=== PATIENT | female | born 1995 | race Hispanic/Latino ===

== ENCOUNTER 2017-04-28 04:05 | Emergency (ER) | payer SELFPAY ==
[2017-04-28] MEDS ORDERED: NA CHLORIDE 0.9% 2,000 ML ONE (04:49)
[2017-04-28 05:23] LABS: Barbiturates NEGATIVE; Benzodiazepines NEGATIVE; Cocaine NEGATIVE; METHAMPHETAM NEGATIVE; Opiates NEGATIVE; Phencyclidine NEGATIVE; THC Cannibis POSITIVE
[2017-04-28 05:41] LABS: Urine Blood 1+ (NEG); Urine Glucose NEGATIVE (NEG); Urine Protein NEGATIVE (NEG); Urine pH 5.5 (5.0-7.0)
--- NOTE | 2017-04-28 05:50 | EDPHYS ---
Physician Documentation [facility] Name: Karen Rivera Age: 21 yrs Sex: Female : 1995 Arrival Date: 04/28/2017 Time: 04:09 Bed 8 Private MD: ED Physician Darian Reese HPI: 04/28 05:54 This 21 yrs old Female presents to ER via EMS with complaints of ETOH Abuse. gs 05:54 The patient presents with agitation, decreased mental status. Onset: The gs symptoms/episode began/occurred acutely, just prior to arrival. Possible causes: drug use, alcohol. Associated signs and symptoms: Pertinent negatives: numbness, shortness of breath. Current symptoms: In the emergency department the patient's symptoms are unchanged from the initial presentation. It is unknown whether or not the patient has had similar symptoms in the past. 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 - Social history:: Smoking status: Patient/guardian denies using tobacco. ROS: 05:54 All other systems are negative. gs Exam: 05:54 Head/Face: Normocephalic, atraumatic. Eyes: Pupils equal round and reactive to light, gs extra-ocular motions intact. Lids and lashes normal. Conjunctiva and sclera are non-icteric and not injected. Cornea within normal limits. Periorbital areas with no swelling, redness, or edema. ENT: Nares patent. No nasal discharge, no septal abnormalities noted. Tympanic membranes are normal and external auditory canals are clear. Oropharynx with no redness, swelling, or masses, exudates, or evidence of obstruction, uvula midline. Mucous membranes moist. Neck: Trachea midline, no thyromegaly or masses palpated, and no cervical lymphadenopathy. Supple, full range of motion without nuchal rigidity, or vertebral point tenderness. No Meningismus. Chest/axilla: Normal chest wall appearance and motion. Nontender with no deformity. No lesions are appreciated. Cardiovascular: Regular rate and rhythm with a normal S1 and S2. No gallops, murmurs, or rubs. Normal PMI, no JVD. No pulse deficits. Respiratory: Lungs have equal breath sounds bilaterally, clear to auscultation and percussion. No rales, rhonchi or wheezes noted. No increased work of breathing, no retractions or nasal flaring. Abdomen/GI: Soft, non-tender, with normal bowel sounds. No distension or tympany. No guarding or rebound. No evidence of tenderness throughout. Back: No spinal tenderness. No costovertebral tenderness. Full range of motion. 05:54 Constitutional: The patient appears alert, awake. 05:54 Musculoskeletal/extremity: Extremities: noted in the left dasilva: contusion, Joints: the left knee displays tenderness. 05:54 Neuro: Orientation: to person, Cranial nerves: CN II- XII are normal as tested, Motor: moves all fours, Sensation: no obvious gross deficits. Vital Signs: 04:19 BP 117 / 77; Pulse 139; Resp 26; Temp 98.2; Pulse Ox 100% on R/A; Weight 61.23 kg; tl2 Height 5 ft. 2 in. (157.48 cm); Pain 10/10; 04:30 BP 118 / 86; Pulse 136; Resp 24; Pulse Ox 100% on R/A; ak1 05:10 BP 98 / 72; Pulse 114; Resp 16; Pulse Ox 100% on R/A; ak1 04:19 Body Mass Index 24.69 (61.23 kg, 157.48 cm) tl2 MDM: 04:32 Patient medically screened. gs 05:54 Differential Diagnosis: alcohol intoxication, intracranial bleed, overdose. Data reviewed: vital signs, nurses notes. Response to treatment: the patient's symptoms have markedly improved after treatment, can walk on own will discharge no fracture no head injury just intoxicated. 04/28 04:29 Order name: ETOH Level [facility] 04/28 04:29 Order name: Urine Drug Screen [facility] 04/28 04:50 Order name: Urine Dipstick--Ancillary (enter results) [facility] 04/28 04:50 Order name: Urine --Ancillary (enter results) [facility] 04/28 05:15 Order name: Alcohol Serum/Plasma; Complete Time: 06:11 EDMS 04/28 05:23 Order name: Urine Drug Screen; Complete Time: 06:11 EDMS 04/28 05:41 Order name: Urine --Ancillary; Complete Time: 06:11 EDMS 04/28 04:29 Order name: Urine Test (obtain specimen); Complete Time: 04:45 tl2 04/28 04:29 Order name: EKG; Complete Time: 04:30 tl2 04/28 04:29 Order name: IV Saline Lock; Complete Time: 04:34 tl2 04/28 04:29 Order name: Urine Dipstick-Ancillary (obtain specimen); Complete Time: 04:45 tl2 04/28 04:36 Order name: Knee Left 3 View XRAY 04/28 04:36 Order name: Tib Fib Left XRAY 04/28 04:38 Order name: Straight Cath - Urine; Complete Time: 04:45 bb 04/28 04:51 Order name: CT Head Brain wo Cont 04/28 05:41 Order name: Urine Dipstick-Ancillary; Complete Time: 06:11 EDMS Administered Medications: 04:33 Drug: NS 0.9% 2000 ml Route: IV; Rate: 1 bolus; Site: right antecubital; ak1 Disposition: 04/28/17 05:49 Discharged to Home. Impression: Alcohol abuse with intoxication. - Condition is Stable. - Discharge Instructions: Alcohol Intoxication, [id number]. - Medication Reconciliation Form, Thank You Letter, Antibiotic Education, Prescription Opioid Use form. - Follow up: Private Physician; When: 2 - 3 days; Reason: Re-evaluation by your physician. Signatures: Dispatcher [employer] Yamilet Liu RN RN bb Krenek, Amber, RN RN ak1 Cintia Vargas RN RN tl2 Darian Reese MD MD Corrections: (The following items were deleted from the chart) 04:37 04:29 EKG - Nurse/Tech ordered. tl2 rg2 04:38 04:29 Labs collected and sent ordered. tl2 rg2
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
--- NOTE | 2017-04-28 08:18 | RAD REPORT ---
EXAM DESCRIPTION: CT - Head Brain Wo Cont - 04/28/2017 6:38 am CLINICAL HISTORY: Altered mental status, uncooperative and confused A preliminary written report was provided at the time of the study, and the report was reviewed prio r to final dictation. COMPARISON: None. TECHNIQUE: Axial 5 mm thick images of the head were obtained without IV contrast. Patient was unable or unwilling to lay supine for imaging. Patient was imaged on the left side. All CT scans are performed using dose optimization technique as appropriate and may include automated exposure control or mA/KV adjustment according to patient size. FINDINGS: No intracranial hemorrhage, mass, edema or shift of mid-line structures. No acute infarcti on changes seen. No abnormal extra-axial fluid collections. Ventricles are normal. Mastoid air cells are clear. There is patchy mucosal thickening in the ethmoid air cells. No air-flui d levels. Patient has nonspecific nasal passage opacification not fully assessed on this study. No acute bony findings. IMPRESSION: Negative non-contrast CT head examination for acute or significant finding.
--- NOTE | 2017-04-28 09:04 | RAD REPORT ---
EXAM DESCRIPTION: RAD - Knee Left 2 View - 04/28/2017 5:06 am CLINICAL HISTORY: Altered mental status, knee pain, unknown injury, patient uncooperative COMPARISON: None. FINDINGS: No fracture, dislocation or periosteal reaction.No joint effusion seen. No joint space analilia rowing. No soft tissue abnormality. Clinical concerns for internal derangement or occult bony injury could be further assessed with MR im aging. IMPRESSION: Negative left knee.
--- NOTE | 2017-04-28 09:06 | RAD REPORT ---
EXAM DESCRIPTION: RAD - Tib Fib Left - 04/28/2017 5:05 am CLINICAL HISTORY: Leg pain, patient uncooperative, altered mental status COMPARISON: None. FINDINGS: No fracture is identified. There is no dislocation or periosteal reaction noted. No acute or suspicious bony finding. No foreign body or other soft tissue abnormality. IMPRESSION: Negative left tibia & fibula examination. There is artifact from a hand at the ankle joint needed to obscure the patient in place. Ankle abnorm ality is not suspected but followup imaging would be needed if there are ankle symptoms and the patie nt becomes more cooperative.
== END 2017-04-28 06:05 | disposition home or self-care (01) ==
LOC: ER 04:05
DX: F10.129 Alcohol abuse with intoxication, unspecified (principal)
CPT/HCPCS: 36415; 51702; 70450; 80307; 80320; 81003; 81025; 99285; J7030

== ENCOUNTER 2018-02-03 21:45 | Emergency (ER) | payer OTHER, SELFPAY ==
--- OUTSIDE RECORDS SUMMARY | 2018-02-03 21:47 | XMS REPORT ---
:1995 [facility] Address [address] [place] [address] [address] [place] [address] Care Team Providers Name Role Phone Unavailable Unavailable Unavailable Problems This patient has no known problems. Allergies, Adverse Reactions, Alerts This patient has no known allergies or adverse reactions. Medications This patient has no known medications.
[2018-02-03] MEDS ORDERED: NA CHLORIDE 0.9% 1,000 ML ONE (22:40)
[2018-02-03 22:47] LABS: BUN Blood Urea Nitrogen 8 mg/dL (7-18); Bicarbonate 24 mmol/L (21-32); Glucose Level 80 mg/dL (74-106); Potassium 4.1 mmol/L (3.5-5.1); Sodium Level 146 mmol/L (136-145)
[2018-02-03 22:49] LABS: Absolute Monocytes 0.8 K/uL (0.1-1.3); Basophils % 0.2 % (0-1.3); Eosinophils % 1.3 % (0-4.4); Hematocrit 23.1 % (36.0-45.0); Lymphocytes % 16.6 % (15.3-44.8); MPV 9.2 fL (7.6-11.3); Monocytes % 6.4 % (3.3-12.3); RBC Red Blood Cell Count 2.98 M/uL (3.86-4.86)
[2018-02-03 23:06] LABS: Urine Blood NEGATIVE (NEG); Urine Glucose NEGATIVE (NEG); Urine Protein NEGATIVE (NEG)
--- NOTE | 2018-02-04 00:33 | ER ---
Nurse's Notes [facility] Name: Karen Rivera Age: 22 yrs Sex: Female : 1995 Arrival Date: 02/03/2018 Time: 21:49 Bed 6 Private MD: Diagnosis: Post bleeding. Retained products. Anemia Presentation: 02/03 21:59 Presenting complaint: Patient states: she gave last night at 1203 vaginally with bb no complications but about an hour ago she started passing large clots and was told by her physician she should be seen if that happens. Transition of care: patient was not received from another setting of care. Onset of symptoms was February 03, 2018. Risk Assessment: Do you want to hurt yourself or someone else? Patient reports no desire to harm self or others. Initial Sepsis Screen: Does the patient meet any 2 criteria? No. Patient's initial sepsis screen is negative. Does the patient have a suspected source of infection? No. Patient's initial sepsis screen is negative. Note pt states bilateral lower legs are swelling. Care prior to arrival: None. 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 - Social history:: Smoking status: Patient uses tobacco products, smokes one-half pack cigarettes per day, Patient/guardian denies using alcohol, street drugs. - Ebola Screening: : No symptoms or risks identified at this time. Screenin:00 Nutritional screening: No deficits noted. ca1 22:10 Abuse screen: Denies threats or abuse. Denies injuries from another. ca1 22:10 Tuberculosis screening: No symptoms or risk factors identified. Fall Risk None ca1 identified. Assessment: 22:07 General: Appears in no apparent distress. comfortable, Behavior is calm, cooperative, ca1 appropriate for age. Pain: Complains of pain in abdomen Pain currently is 8 out of 10 on a pain scale. Neuro: Level of Consciousness is awake, alert, obeys commands, Oriented to person, place, time, situation. Cardiovascular: Heart tones S1 S2 present Capillary refill < 3 seconds Patient's skin is warm and dry. Respiratory: Airway is patent Trachea midline Respiratory effort is even, unlabored, Respiratory pattern is regular, symmetrical, Breath sounds are clear bilaterally. GI: Abdomen is round non-distended, Bowel sounds present X 4 quads. Abd is soft Abdomen is tender to palpation Reports cramping, since since less than an hour ago. 22:07 : Reports vaginal bleeding that is with clots, since an hour ago. EENT: No signs ca1 and/or symptoms were reported regarding the EENT system. Derm: Skin is intact, is healthy with good turgor, Skin is pink, warm \T\ dry. Musculoskeletal: Circulation, motion, and sensation intact. Range of motion: intact in all extremities. 23:00 Reassessment: Patient appears in no apparent distress at this time. Patient and/or ca1 family updated on plan of care and expected duration. Pain level reassessed. Patient is alert, oriented x 3, equal unlabored respirations, skin warm/dry/pink. 02/04 00:18 Reassessment: Patient appears in no apparent distress at this time. Patient and/or ca1 family updated on plan of care and expected duration. Pain level reassessed. Patient is alert, oriented x 3, equal unlabored respirations, skin warm/dry/pink. Instructed on NPO. 00:37 Reassessment: Dr. Harley inside the room discussed results of ultrasound and need for ca1 transfer to patient and significant other. 00:50 Reassessment: Patient appears in no apparent distress at this time. Patient and/or ca1 family updated on plan of care and expected duration. Pain level reassessed. Patient is alert, oriented x 3, equal unlabored respirations, skin warm/dry/pink. Called report to Nayana Ramirez RN at [facility] L\T\D triage. Vital Signs: 02/03 22:02 BP 126 / 88; Pulse 79; Resp 16 S; Temp 99.2(O); Pulse Ox 99% on R/A; Weight 58.97 kg bb (R); Height 5 ft. 2 in. (157.48 cm) (R); 22:30 BP 121 / 88; Pulse 75; Resp 18; Pulse Ox 99% on R/A; ca1 23:00 BP 113 / 94; Pulse 76; Resp 18; Pulse Ox 99% on R/A; ca1 02/04 00:18 BP 131 / 93; Pulse 73; Resp 18; Pulse Ox 100% on R/A; ca1 00:37 BP 131 / 93; Pulse 78; Resp 18; Temp 98.8; Pulse Ox 100% on R/A; ca1 01:11 BP 115 / 86; Pulse 86; Resp 18; Pulse Ox 100% on R/A; ca1 02/03 22:02 Body Mass Index 23.78 (58.97 kg, 157.48 cm) bb ED Course: 02/03 21:49 Patient arrived in ED. es 22:00 Daisy Ambriz, RN is Primary Nurse. ca1 22:01 Robbie Harley MD is Attending Physician. pkl 22:02 Triage completed. bb 22:02 Arm band placed on Patient placed in an exam room, on a stretcher, on pulse oximetry. bb Family accompanied patient. 22:10 Patient has correct armband on for positive identification. Placed in gown. Bed in low ca1 position. Call light in reach. Side rails up X2. 22:15 Inserted saline lock: 20 gauge in right antecubital area, using aseptic technique. ca1 Blood collected. 22:52 Notified ED physician of a critical lab result(s). Hgb of 7.5 Dr Harley notified. bb 23:03 Straight cath inserted, using sterile technique, 16 Fr. Specimen obtained. Returned ca1 clear yellow urine. Patient tolerated well. 23:17 Ultrasound completed. Patient tolerated well. Note: exam sent to [facility]. sg3 23:17 US Pelvis Complete In Process Unspecified. EDOR 02/04 01:20 No provider procedures requiring assistance completed. Patient transferred, IV remains ca1 in place. Administered Medications: 02/03 22:31 Drug: NS 0.9% 1000 ml Route: IV; Rate: 100 ml/hr; Site: right antecubital; ca1 02/04 01:29 Follow up: IV Status: Infusion continued upon transfer ca1 Outcome: 00:32 ER care complete, transfer ordered by . ericka 01:20 Transferred by ground EMS Transfer form completed. ca1 01:20 Condition: stable 01:20 Instructed on the need for transfer, Demonstrated understanding of instructions. 01:28 Patient left the ED. ca1 Signatures: Dispatcher [employer] EDOR Harley, MD MD ericka Avalos Edna es Ballard, Brenda, RN RN Shruti Grace sg3 Daisy Ambriz RN RN ca1 Corrections: (The following items were deleted from the chart) 02/03 23:32 22:07 GI: Abdomen is round non-distended, Bowel sounds present X 4 quads. ca1 ca1 23:40 23:05 Reassessment: Patient appears in no apparent distress at this time. Patient ca1 and/or family updated on plan of care and expected duration. Pain level reassessed. Patient is alert, oriented x 3, equal unlabored respirations, skin warm/dry/pink. ca1 23:52 22:07 : No signs and/or symptoms were reported regarding the genitourinary system. ca1ca1 02/04 01:16 00:50 Reassessment: Patient appears in no apparent distress at this time. Patient ca1 and/or family updated on plan of care and expected duration. Pain level reassessed. Patient is alert, oriented x 3, equal unlabored respirations, skin warm/dry/pink. Called report to Nayana Ramirez RN. ca1
--- NOTE | 2018-02-04 00:33 | EDPHYS ---
Physician Documentation [facility] Name: Karen Rivera Age: 22 yrs Sex: Female : 1995 Arrival Date: 02/03/2018 Time: 21:49 Bed 6 Private MD: ED Physician Robbie Harley HPI: 02/03 22:53 This 22 yrs old Female presents to ER via Ambulatory with complaints of pkl Passing clots of blood, feet and hands swelling. 22:53 The patient presents with vaginal bleeding that is moderate, with clots. Onset: The pkl symptoms/episode began/occurred just prior to arrival, 1 hour(s) ago. Associated signs and symptoms: Pertinent positives: swelling hands and legs. S/P vaginal delivery yesterday. 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 - Social history:: Smoking status: Patient uses tobacco products, smokes one-half pack cigarettes per day, Patient/guardian denies using alcohol, street drugs. - Ebola Screening: : No symptoms or risks identified at this time. ROS: 22:53 Positive for vaginal bleeding. pkl 22:53 Eyes: Negative for injury, pain, redness, and discharge, ENT: Negative for injury, pain, and discharge, Neck: Negative for injury, pain, and swelling, Cardiovascular: Negative for chest pain, palpitations, and edema, Respiratory: Negative for shortness of breath, cough, wheezing, and pleuritic chest pain, Abdomen/GI: Negative for abdominal pain, nausea, vomiting, diarrhea, and constipation, Back: Negative for injury and pain. 22:53 MS/extremity: Positive for swelling, of the hands and legs. 22:53 Skin: Negative for rash. 22:53 Neuro: Negative for altered mental status. Exam: 22:53 Head/Face: Normocephalic, atraumatic. Eyes: Pupils equal round and reactive to light, pkl extra-ocular motions intact. Lids and lashes normal. Conjunctiva and sclera are non-icteric and not injected. Cornea within normal limits. Periorbital areas with no swelling, redness, or edema. ENT: Nares patent. No nasal discharge, no septal abnormalities noted. Tympanic membranes are normal and external auditory canals are clear. Oropharynx with no redness, swelling, or masses, exudates, or evidence of obstruction, uvula midline. Mucous membranes moist. Neck: Trachea midline, no thyromegaly or masses palpated, and no cervical lymphadenopathy. Supple, full range of motion without nuchal rigidity, or vertebral point tenderness. No Meningismus. Chest/axilla: Normal chest wall appearance and motion. Nontender with no deformity. No lesions are appreciated. Cardiovascular: Regular rate and rhythm with a normal S1 and S2. No gallops, murmurs, or rubs. Normal PMI, no JVD. No pulse deficits. Respiratory: Lungs have equal breath sounds bilaterally, clear to auscultation and percussion. No rales, rhonchi or wheezes noted. No increased work of breathing, no retractions or nasal flaring. Abdomen/GI: Soft, non-tender, with normal bowel sounds. No distension or tympany. No guarding or rebound. No evidence of tenderness throughout. Back: No spinal tenderness. No costovertebral tenderness. Full range of motion. 22:53 : Pelvic Exam: Speculum exam: moderate bleeding, a female copy clerk was present for the exam. 22:53 Musculoskeletal/extremity: Extremities: grossly normal except: noted in the both legs moderate swelling: Vital Signs: 22:02 BP 126 / 88; Pulse 79; Resp 16 S; Temp 99.2(O); Pulse Ox 99% on R/A; Weight 58.97 kg bb (R); Height 5 ft. 2 in. (157.48 cm) (R); 22:30 BP 121 / 88; Pulse 75; Resp 18; Pulse Ox 99% on R/A; ca1 23:00 BP 113 / 94; Pulse 76; Resp 18; Pulse Ox 99% on R/A; ca1 02/04 00:18 BP 131 / 93; Pulse 73; Resp 18; Pulse Ox 100% on R/A; ca1 00:37 BP 131 / 93; Pulse 78; Resp 18; Temp 98.8; Pulse Ox 100% on R/A; ca1 01:11 BP 115 / 86; Pulse 86; Resp 18; Pulse Ox 100% on R/A; ca1 02/03 22:02 Body Mass Index 23.78 (58.97 kg, 157.48 cm) bb MDM: 02/03 22:01 Patient medically screened. pkl 02/04 00:28 Data reviewed: vital signs, nurses notes, lab test result(s), radiologic studies, pkl ultrasound. 02/03 22:14 Order name: CBC with Diff; Complete Time: 22:52 pkl 02/03 22:14 Order name: Chem 7; Complete Time: 22:49 pkl 02/03 22:51 Order name: US Pelvis Complete pkl 02/03 22:53 Order name: Type And Screen; Complete Time: 00:32 bb 02/03 23:04 Order name: Urine Dipstick--Ancillary (enter results); Complete Time: 23:56 ms 02/03 22:42 Order name: Straight Cath: verbal Order.; Complete Time: 23:03 ca1 Administered Medications: 02/03 22:31 Drug: NS 0.9% 1000 ml Route: IV; Rate: 100 ml/hr; Site: right antecubital; ca1 02/04 01:29 Follow up: IV Status: Infusion continued upon transfer ca1 Disposition: 02/04/18 00:32 Transfer ordered to [facility]. Diagnosis is Post bleeding. Retained products. Anemia. - Reason for transfer: Higher level of care. - Accepting physician is Dr. Colvin. - Condition is Stable. - Problem is new. - Symptoms are unchanged. Signatures: Dispatcher [employer] Robbie Villanueva MD MD pkl Yamilet Morrell RN RN bb Daisy Ambriz RN RN ca1 Corrections: (The following items were deleted from the chart) 02/03 22:16 22:15 This 22 yrs old Female presents to ER via Ambulatory with complaints of pkl Passing clots of blood, feet and hands swelling. pkl 02/04 01:28 00:32 02/04/2018 00:32 Transfer ordered to [facility]. Diagnosis is Post ca1 bleeding. Retained products. Anemia. Reason for transfer: Higher level of care. Accepting physician is Dr. Colvin. Condition is Stable. Problem is new. Symptoms are unchanged. pkl
--- NOTE | 2018-02-04 11:40 | RAD REPORT ---
EXAM DESCRIPTION: US - Pelvis Complete - 02/03/2018 11:19 pm CLINICAL HISTORY: passing clots Pelvic pain. COMPARISON: No comparisons FINDINGS: The uterus is enlarged compatible with status. The uterus measures 18 x 15 x 7 cm. Endometrium is heterogenous and thickened to 16 mm. An area of focal soft tissue prominence in the lo wer uterine segment measuring 3 cm is noted. This could be an area of retained products. Neither ovary was seen due to bowel gas. No significant pelvic ascites. IMPRESSION: uterus is noted as detailed.3 cm area of heterogenous tissue in the lower tejon rine endometrial canal could be retained products.
== END 2018-02-04 01:28 | disposition short-term general hospital (02) ==
LOC: ER 21:45
DX: O72.1 Other immediate postpartum hemorrhage (principal); O72.2 Delayed and secondary postpartum hemorrhage; O90.81 Anemia of the puerperium
CPT/HCPCS: 36415; 51702; 76856; 80048; 81003; 85025; 86850; 86900; 86901; 96360; 96361; 99285; J7030

== ENCOUNTER 2022-02-14 19:04 | Emergency (ER) | payer OTHER ==
--- OUTSIDE RECORDS SUMMARY | 2022-02-14 19:10 | XMS REPORT | Continuity of Care Document ---
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 [facility] 2020-09-30 2020-09-30 Outpatient Jacinta [facility] [id number] Univers 18:00:00 18:00:00 JANICE mesa o [facility] 2020-09-30 2020-09-30 Outpatient Jacinta [facility] [id number] Univers 16:00:00 16:00:00 JANICE mesa o [facility] 2020-09-18 2020-09-22 [facility] Mago Jorge [facility] 1.2.840.11 [id number] Univers 17:30:00 10:25:00 Encounter Samuel Anderson Mervin [place] 350.1.13.10 ity of [place] 4.2.7.2.686 [facility] [phone] [place] [id number] Nitro 2020-09-22 2020-09-22 [facility] 1.2.872.544 [id number] Univers 00:00:00 00:00:00 Janice Workman ENGINEERING CONSULTANT 350.1.13.10 ity of [facility] 4.2.7.2.686 Ran as MATERNAL [phone] [facility] ical & CHILD [address] [place] [address] 2020-09-08 2020-09-09 Hospital Samuel Anderson [facility] 1.2.840.114 [id number] Univers 06:10:00 17:37:00 Encounter Mervin [place] 350.1.13.10 ity of [place] 4.2.7.2.686 [facility] [phone] [place] [id number] Nitro 2020-09-08 2020-09-08 Outpatient Jacinta [facility] [id number] Univers 17:30:00 17:30:00 ODALYSKAILASHNDA ity o [facility] 2020-09-08 2020-09-08 Anesthesia Hemalatha Flores [facility] 1.2.840. 114 [id number] Univers 08:29:00 14:29:00 Event Kishore Manley 350.1.13.10 ity of [place] 4.2.7.2.686 [phone] [address] 2020-09-08 2020-09-[address] [facility] 1.2.840.114 [id number] Univers 07:30:27 07:30:27 Event Celio Paris 350.1.13.10 i ty of [place] 4.2.7.2.686 [facility] [phone] [address] 2020-09-03 2020-09-[address] [facility] 1.2.830.049 [id number] Univers 00:00:00 00:00:00 Tamaranda R ENGINEERING CONSULTANT 350.1.13.10 ity of REGIONAL 4.2.7.2.686 Ran as MATERNAL [phone] [facility] ical & CHILD [address] [place] [address] 2020-09-01 2020-09-[address] [facility] 1.2.660.054 [id number] Univers 00:00:00 00:00:00 Roskailashnda R ENGINEERING CONSULTANT 350.1.13.10 ity of REGIONAL 4.2.7.2.686 Ran as MATERNAL [phone] [facility] [address] [place] [address] 2020-08-31 2020-08-31 Outpatient R CHARANJIT [facility] [id number] Univers 17:30:00 17:30:00 ROSKAILASHNDA ity o f [facility] 2020-08-26 2020-08-26 Emergency Madan, Thompson [facility] 1.2.840.114 [id number] Univers 02:58:00 04:56:00 [place] 350.1.13.10 i ty of [place] 4.2.7.2.686 [facility] [phone] [address] 2020-08-19 2020-08-19 Outpatient R CHARANJIT [facility] [id number] Univers 18:00:00 18:00:00 TAMARANDA bonita o [facility] 2020-08-12 2020-08-12 Outpatient R CHARANJIT [facility] [id number] Univers 18:00:00 18:00:00 TAMARANDA marky o f [facility] 2020-07-30 2020-07-[address] [facility] 1.2.840.114 [id number] Univers 07:56:20 08:58:52 Roshunda R ENGINEERING CONSULTANT 350.1.13.10 ity of Visit REGIONAL 4.2.7.2.686 Ran as MATERNAL [phone] Med ical & CHILD [address] [place] [address] 2020-07-30 2020-07-30 Outpatient R CHARANJIT [facility] [id number] Univers 08:45:00 08:45:00 TIENA bonita o [facility] 2020-07-21 2020-07-21 Nurse ANDRE Cook 1.2.840.114 [id number] Univers 00:00:00 00:00:00 Triage Deisy [place] 350.1.13.10 it y of HOSPITAL 4.2.7.2.686 Ran as [id number] [address] 2020-07-20 2020-07-[address] [facility] 1.2.956.158 [id number] Univers 00:00:00 00:00:00 Roskailashnda R ENGINEERING CONSULTANT 350.1.13.10 ity of REGIONAL 4.2.7.2.686 Ran as MATERNAL [phone] [facility] ical & CHILD [address] [place] [address] 2020-07-16 2020-07-16 Outpatient Jacinta ELLINGTON [facility] [id number] Univers 15:30:00 15:30:00 RUSSELL mesa [facility] 2020-07-16 2020-07-[address] [facility] 1.2.840.114 [id number] Univers 08:12:33 10:08:47 Roshunda R ENGINEERING CONSULTANT 350.1.13.10 ity of Visit REGIONAL 4.2.7.2.686 Ran as MATERNAL [phone] Med ical & CHILD [facility] 2020-07-16 2020-07-16 Outpatient Jacinta DONOHUE [facility] [id number] Univers 08:00:00 08:00:00 ROSKAILASHNDA marky o f [facility] 2020-07-10 2020-07-10 Emergency Thompson Hager [facility] 1.2.840.114 [id number] Univers 21:13:00 22:48:00 [place] 350.1.13.10 i ty of [place] 4.2.7.2.686 [facility] [phone] [facility] [address] 2020-07-10 2020-07-10 Orders Doctor ANDRE 1.2.840.114 [id number] Univers 00:00:00 00:00:00 Only Unassigned, SOCORRO 350.1.13.10 ity of [facility] 4.2.7.2.686 Ran as [phone] [facility] [address] 2020-07-08 2020-07-08 Outpatient Jacinta DONOHUE [facility] [id number] Univers 13:30:00 13:30:00 JANICE mesa o f [facility] 2020-06-17 2020-06-17 Outpatient Jacinta DONOHUE [facility] [id number] Univers 09:45:00 09:45:00 TIENA bonita o f [facility] 2020-06-03 2020-06-[address] [facility] 1.2.840.114 [id number] Univers 15:43:15 16:03:31 Janice R ENGINEERING CONSULTANT 350.1.13.10 ity of Visit [facility] 4.2.7.2.686 Ran as MATERNAL [phone] [facility] ical & CHILD [address] [place] [address] 2020-06-03 2020-06-03 Outpatient Jacinta DONOHUE [facility] [id number] Univers 15:15:00 15:15:00 TIENA bonita o f [facility] 2020-05-29 2020-05-29 Outpatient Jacinta [facility] [id number] Univers 09:15:00 09:15:00 JANICE mesa o f [facility] 2020-05-26 2020-05-26 Telephone Charanjit [facility] 1.2.695.028 [id number] Univers 00:00:00 00:00:00 Roshunda R ENGINEERING CONSULTANT 350.1.13.10 ity of REGIONAL 4.2.7.2.686 Ran as MATERNAL [id number] [facility] [address] [place] [address] 2020-05-25 2020-05-25 Outpatient R CHARANJIT [facility] [id number] Univers 08:15:00 08:15:00 ROSHUNDA ity o f [facility] 2020-04-30 2020-04-30 Infrastructure Analyst Ultrasound[facility] 1.2 .840.114 [id number] Univers 08:49:31 09:56:30 Visit Womack Kasey Marks ENGINEERING CONSULTANT 350.1. 13.10 ity of REGIONAL 4.2.7.2.686 Ran as MATERNAL [phone] [facility] & CHILD [address] [place] [address] 2020-04-30 2020-04-30 Outpatient P [facility] [id number] Univers 08:45:00 08:45:00 ity of [facility] 2020-04-30 2020-04-[address] [facility] 1.2.840.114 [id number] Univers 00:00:00 00:00:00 Roskailashnda R ENGINEERING CONSULTANT 350.1.13.10 ity of REGIONAL 4.2.7.2.686 Ran as MATERNAL [id number] [facility] & CHILD [address] [place] [address] 2020-04-27 2020-04-[address] [facility] 1.2.840.114 [id number] Univers 08:42:50 09:16:33 Roshunda R ENGINEERING CONSULTANT 350.1.13.10 ity of Visit REGIONAL 4.2.7.2.686 Ran as MATERNAL [id number] [facility] & CHILD [address] [place] [address] 2020-04-27 2020-04-27 Outpatient R CHARANJIT [facility] [id number] Univers 08:45:00 08:45:00 ROSHUNDA ity o f [facility] 2020-04-16 2020-04-16 Nurse ANDRE Thurston 1.2.840.114 [id number] Univers 00:00:00 00:00:00 Triage Anemik QUINTANILLA 350.1.13.10 [facility] 4.2.7.2.686 Ran as [phone] [facility] [address] 2020-04-16 2020-04-[address] [facility] 1.2.199.220 [id number] Univers 00:00:00 00:00:00 Roskailashnda R ENGINEERING CONSULTANT 350.1.13.10 ity of [facility] 4.2.7.2.686 Ran as MATERNAL [id number] Med ical & CHILD [address] [place] [address] 2020-03-30 2020-03-[address] [facility] 1.2.840.114 [id number] Univers 08:54:15 09:51:33 Tamaranda R ENGINEERING CONSULTANT 350.1.13.10 ity of Visit [facility] 4.2.7.2.686 Ran as MATERNAL [id number] Med ical & CHILD [address] [place] [address] 2020-03-30 2020-03-30 Outpatient [facility] [id number] Univers 09:45:00 09:45:00 JANICE mesa o monse [facility] 2020-03-30 2020-03-30 Orders Doctor ANDRE 1.2.840.114 [id number] Univers 00:00:00 00:00:00 Only Unassigned, SOCORRO 350.1.13.10 ity of [facility] 4.2.7.2.686 Ran as [phone] [facility] 009 Nitro 2020-03-25 2020-03-25 Outpatient R [facility] [id number] Univers 09:30:00 09:30:00 ity of [facility] 2020-03-23 2020-03-23 Outpatient R [facility] [id number] Univers 10:00:00 10:00:00 DEION ity o f [facility] 2020-01-28 2020-01-28 Outpatient R [facility] [id number] Univers 14:00:00 14:00:00 [facility] 2019-07-08 2019-07-08 Emergency X MATT [facility] ERT [id number] Univers 19:55:47 22:37:00 CLINT [facility] Results Test Description Test Time Test Comments Results Result Comments Source RHO (D) IMMUNE GLOBULIN 2021-11-06 17:23:57 Test Item Value Reference Range Interpretation Comme nts RHIG CANDIDATE? (test code = No- see comment Patient is not a candidate for RhIg- 5055) Patient is Rh P ositive.Performed at [facility] Laboratory Services - [facility] Blood Ebrr[address]Toll Free: [phone] A No. [id number] [facility] Screen - ONCE [id number] 10:01:27 Test Item Value Reference Range Interpretation Comments ABO & RH (test code O Positive Performe d at [facility] = 20) Laboratory Serv [facility] Blood Bank1 [address] [place], [place] [address]Toll Free: [phone] A No. [id number] IAT (test code = Negative Performed a t [facility] 1185) Laboratory Serv [facility] Blood Bank1 [address] [place], [place] [id number] Free: [phone] A No. [id number] [facility]
[2022-02-14 19:57] LABS: Urine Blood 1+ (Negative); Urine Glucose Negative (Negative); Urine Protein 1+ (Negative); Urine Specific Gravity >=1.030 (1.005-1.030); Urine pH 5.5 (5.0-7.0)
[2022-02-14 20:41] LABS: Urine Specific Gravity/Preg >1.030 (1.005-1.030)
[2022-02-14 21:20] LABS: SARS-COV-2 RT PCR POSITIVE (NEGATIVE)
--- NOTE | 2022-02-14 22:02 | ER ---
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 pt had 102 fever at 5pm and took 1000mg tylenol. Coronavirus screen: Vaccine status: Patient reports being unvaccinated. Client denies travel out of the [place] in the last 14 days. Ebola Screen: Patient negative for fever greater than or equal to 101.5 degrees Fahrenheit, and additional compatible Ebola Virus Disease symptoms Patient denies exposure to infectious person. Patient denies travel to an Ebola-affected area in the 21 days before illness onset. Initial Sepsis Screen: Does the patient meet any 2 criteria? No. Patient's initial sepsis screen is negative. Does the patient have a suspected source of infection? No. Patient's initial sepsis screen is negative. Risk Assessment: Do you want to hurt yourself or someone else? Patient reports no desire to harm self or others. Onset of symptoms was February 14, 2022. 19:30 Method Of Arrival: Ambulatory [facility] 19:30 Acuity: TY 4 [facility] Triage Assessment: 19:33 General: Appears in no apparent distress. slender, Behavior is calm, cooperative, [facility] appropriate for age. VERIFICATION LEAD: 19:33 LMP N/A - Recent [facility] Historical: - Allergies: 19:33 NKA; 5 - PMHx: 19:33 Bipolar disorder; Depression; [facility] - Immunization history:: Adult Immunizations up to date. - Social history:: Smoking status: Reported history of juuling and/or vaping. Screenin:16 [facility] ED Fall Risk Assessment (Adult) History of falling in the last 3 months, 3 including since admission No falls in past 3 months (0 pts). Abuse screen: Denies threats or abuse. Denies injuries from another. Nutritional screening: No deficits noted. Tuberculosis screening: No symptoms or risk factors identified. Assessment: 20:30 General: Appears in no apparent distress. comfortable, Behavior is calm, cooperative, eh3 appropriate for age. Pain: Denies pain. Neuro: Level of Consciousness is awake, alert, obeys commands, Oriented to person, place, time, situation. Cardiovascular: Capillary refill < 3 seconds Patient's skin is warm and dry. Respiratory: Airway is patent Respiratory effort is even, unlabored, Respiratory pattern is regular. GI: No signs and/or symptoms were reported involving the gastrointestinal system. : No signs and/or symptoms were reported regarding the genitourinary system. EENT: No signs and/or symptoms were reported regarding the EENT system. Derm: No signs and/or symptoms reported regarding the dermatologic system. Musculoskeletal: No signs and/or symptoms reported regarding the musculoskeletal system. Vital Signs: 19:30 BP 126 / 72; Pulse 104; Resp 18; Temp 98.4; Pulse Ox 100% ; Weight 61.23 kg; Height 5 [facility] ft. 2 in. (157.48 cm); Pain 0/10; 19:30 Body Mass Index 24.69 (61.23 kg, 157.48 cm) [facility] ED Course: 19:13 Patient arrived in ED. mr 19:21 Elias Cesar PA is PHCP. cp 19:21 Kentrell Graham MD is Attending Physician. cp 19:33 Triage completed. 5 19:33 Arm band placed on right wrist. [facility] 19:52 Strep Sent. 5 19:52 COVID-19/FLU A+B Sent. [facility] 21:39 Throat Culture Sent. 5 22:16 Patient has correct armband on for positive identification. eh3 22:16 No provider procedures requiring assistance completed. Patient did not have IV access eh3 during this emergency room visit. Administered Medications: No medications were administered Medication: 22:16 VIS not applicable for this client. eh3 Outcome: 22:01 Discharge ordered by . cp 22:16 Discharged to home ambulatory. eh3 22:16 Condition: stable 22:16 Discharge instructions given to patient, Instructed on discharge instructions, follow up and referral plans. medication usage, Demonstrated understanding of instructions, follow-up care, medications, Prescriptions given X 1. 22:19 Patient left the ED. eh3 Signatures: Pily Arellano mr Elias Cesar PA PA cp Wood, Tiffany tw5 Emili Mg, RN RN jh5 Bijal Bautista RN RN eh3
--- NOTE | 2022-02-14 22:02 | EDPHYS ---
Physician Documentation [facility] Name: Karen Rivera Age: 26 yrs Sex: Female : 1995 Arrival Date: 02/14/2022 Time: 19:13 Bed 1 Private MD: ED Physician Kentrell Graham HPI: 02/14 19:55 This 26 yrs old Female presents to ER via Ambulatory with complaints of Flu cp Symptoms. 19:55 The patient or guardian reports cough, flu symptoms, arthralgias, fever, sore throat, cp headache. 19:55 Onset: The symptoms/episode began/occurred this morning. Severity of symptoms: in the cp emergency department the symptoms are unchanged despite home interventions. 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 [employer]: 19:33 LMP N/A - Recent 5 Historical: - Allergies: 19:33 NKA; jh5 - PMHx: 19:33 Bipolar disorder; Depression; 5 - Immunization history:: Adult Immunizations up to date. - Social history:: Smoking status: Reported history of juuling and/or vaping. ROS: 20:00 Constitutional: Positive for body aches, Negative for fever, poor PO intake. cp 20:00 Eyes: Negative for injury, pain, redness, and discharge. cp 20:00 ENT: Positive for sore throat. 20:00 Respiratory: Positive for cough. 20:00 Neuro: Positive for headache. 20:00 All other systems are negative. Exam: 20:05 Constitutional: The patient appears in no acute distress, alert, awake, non-toxic, well cp developed, well nourished. 20:05 Head/Face: Normocephalic, atraumatic. cp 20:05 Eyes: Periorbital structures: appear normal, Conjunctiva: normal, no exudate, no injection, Lids and lashes: appear normal, bilaterally. 20:05 ENT: External ear(s): are unremarkable, Ear canal(s): are normal, clear, TM's: dullness, bilaterally, Nose: is normal, Mouth: Lips: moist, Oral mucosa: moist, Posterior pharynx: Airway: no evidence of obstruction, patent, Tonsils: with erythema, no enlargement, no exudate. 20:05 Neck: ROM/movement: is normal, is supple, without pain, no range of motions limitations, no meningismus. 20:05 Chest/axilla: Inspection: normal. 20:05 Cardiovascular: Rate: tachycardic, Rhythm: regular. 20:05 Respiratory: the patient does not display signs of respiratory distress, Respirations: normal, no use of accessory muscles, no retractions, labored breathing, is not present, Breath sounds: are clear throughout, no decreased breath sounds, no stridor, no wheezing. 20:05 Abdomen/GI: Inspection: abdomen appears normal, Palpation: abdomen is soft and non-tender, in all quadrants. Vital Signs: 19:30 BP 126 / 72; Pulse 104; Resp 18; Temp 98.4; Pulse Ox 100% ; Weight 61.23 kg; Height 5 5 ft. 2 in. (157.48 cm); Pain 0/10; 19:30 Body Mass Index 24.69 (61.23 kg, 157.48 cm) [facility] MDM: 19:38 Patient medically screened. 22:00 Data reviewed: vital signs, nurses notes, lab test result(s). cp 22:00 Antibiotic administration: Not indicated, the patient has a suspected viral illness. cp 22:00 ED course: VSS. Will discharge to home for symptomatic treatment. 02/14 19:37 Order name: COVID-19/FLU A+B; Complete Time: 21:[address] [facility] 02/14 21:47 Interpretation: Reviewed. 02/14 19:42 Order name: Strep; Complete Time: 21:[address] [facility] 02/14 19:37 Order name: Urine Test (obtain specimen); Complete Time: 19:[address] [facility] 02/14 19:57 Order name: Urine --Ancillary (enter results); Complete Time: 21:47 [facility] 02/14 21:48 Interpretation: Reviewed. 02/14 19:57 Order name: Urine Dipstick-Ancillary; Complete Time: 21:47 EDMS 02/14 21:48 Interpretation: Normal except: UKET 2+; UBLD 1+; UPROT 1+. 02/14 20:43 Order name: Throat Culture EDMS Administered Medications: No medications were administered Disposition Summary: 02/14/22 22:01 Discharge Ordered Location: Home cp Problem: new cp Symptoms: have improved cp Condition: Stable cp Diagnosis - SARS-associated coronavirus as the cause of diseases classified elsewhere cp Followup: cp - With: Private Physician - When: 2 - 3 days - Reason: Worsening of condition Discharge Instructions: - Discharge Summary Sheet cp - COVID-19 cp - Things to Know about the COVID-19 Pandemic - [facility] cp - 10 Things You Can Do to Manage Your COVID-19 Symptoms at Home - [facility] cp - COVID-19: Quarantine vs. Isolation - [facility] cp - Prevent the Spread of COVID-19 if You Are Sick - [facility] cp Forms: - Medication Reconciliation Form cp - Thank You Letter cp - Antibiotic Education cp - Prescription Opioid Use cp - Work release form eh3 Prescriptions: - Ibuprofen 600 mg Oral Tablet - take 1 tablet by ORAL route every 8 hours As needed take with food; 30 tablet; cp Refills: 0, Product Selection Permitted Addendum: 02/16/2022 06:06 Co-signature as Attending Physician, Kentrell Graham MD I reviewed the patient's care r t provided by the Advanced Practice Provider and agree with the diagnosis and treatment plan. Signatures: Dispatcher [employer] Elias Warner PA PA cp Rees, Jessica, RN RN jh5 Kentrell Graham MD MD rt
[2022-02-14 22:40] VITALS: BP 126/72; TEMP 98.4; O2SAT 100
== END 2022-02-14 22:19 | disposition home or self-care (01) ==
LOC: ER 19:04
DX: U07.1 COVID-19 (principal)
CPT/HCPCS: 87070; 81025; 87081; 81003; 0240U; 99283